=== PATIENT | male | born 1950 | race African-American/Black ===

== ENCOUNTER → 2018-08-23 | Outpatient (CLI) | payer MEDICARE ==
--- NOTE | 2018-08-23 12:36 | Diagnostic Imaging Report ---
Exam: Brain MRI without IV contrast History: History of CVA with residual deficit Comparison studies: None Technique: Sagittal and axial T2 FS, axial DWI, axial T2*GRE, axial T1 FLAIR and axial coronal T2 FLAIR. Intravenous contrast: None Findings: Scalp: Normal in signal. No masses. Bone marrow: Normal in signal intensity. Brain sulci: Appropriate for age. Ventricles: Mild compensatory dilatation with ex vacuo dilatation of the right occipital horn due to chronic insult described below. No hydrocephalus. Extra axial spaces: No mass, no fluid collection. Parenchyma: Chronic cortical/subcortical insult with encephalomalacia, gliosis and T1 hyperintense cortical changes of laminar necrosis in the lingual gyrus of the right occipital lobe in the right [employer] territory. Chronic cortical/subcortical insult in the right frontal lobe in the right MCA territory with encephalomalacia and gliosis along the pars triangularis and opercularis and inferior frontal gyrus at its junction with the precentral and subtle central gyri. Small chronic lacunar infarct in the posterior left cerebellum. Additional smaller chronic bilateral cortical based parietal insults. Scattered T2 FLAIR hyperintense foci in the supratentorial white matter are nonspecific most compatible with chronic microvascular ischemic changes. No mass, hemorrhage or acute ischemia. Suprasellar region: No abnormalities. Craniocervical junction: Patent foramen magnum. No Chiari malformation. Vessels: Normal flow-voids in the arteries and sinuses. IMPRESSION: 1. Chronic left frontal-opercular, bilateral parietal, right occipital and left cerebellar insults. Cardioembolic etiology is a consideration given involvement of multiple vascular territories. 2. Superimposed scattered supratentorial chronic microvascular ischemic changes. 3. Mild general cerebral volume loss. Signed by: Dr. Raoul Tom M.D. on 08/23/2018 12:33 PM
== END ==
LOC: MRI 10:25
PROVIDERS: ATTEND Family Medicine
DX: I69.30 Unspecified sequelae of cerebral infarction (principal); H53.40 Unspecified visual field defects
CPT/HCPCS: 70551